=== PATIENT | female | born 1940 | race Caucasian/White ===

== ENCOUNTER 2018-07-19 12:31 | Inpatient (IN) | payer MEDICARE, BC ==
[2018-07-19] VITALS (16 sets, daily range): BP systolic 98–210; BP diastolic 44–112
[~2018-07-19] VITALS: Ht 162.6 cm; Wt 89.0 kg
[~2018-07-19 12:31] MED LIST: CALTRATE 602 PO; CYCLOBENZAPR10 MG OR; DIOVAN HC1 PO; FLEXERIL PO; LISINOP/HCTZ1 TA2 OR; LORTAB 5 OR; MELOXICAM15 MG OR; NAPROSYN500 MG PO; PROTONIX40 M1 IV; PROTONIX40 M2 PO; SKELAXIN800 MG OR
--- NOTE | 2018-07-19 12:46 | NUR ---
PT TO ROOM 13 VIA EMS. PT STATES THAT SHE HAS SUDDEN ONSET DIZZINESS -THAT BEGAN APPORXIMATE 2 HRS AGO. PT HAS BODY SHAKES, PT IS AOX4. PT STATES THAT SHE HAS BEEN DIAGNOISED WITH HTN BUT HAS NOT TAKEN ANY MEDICATION FOR A COUPLE OF MONTHS FOR IT. PT STATES HAVING SLIGHT SOB, DENIES ANY C/P, N/V OR WEAKNESS. PT DAUGHTER AT BEDSIDE.
[2018-07-19 13:12] LABS: HEMATOCRIT 47.5 % (37.0-47.0); HEMOGLOBIN 16.1 g/dl (12.0-16.0); IMMATURE GRANULOCYTES 0.4 % (0.0-5.0); MEAN CELL VOLUME 94.1 fL CALC (80.0-100.0); MEAN CORPUSCULAR HGB 31.9 pG CALC (26.0-32.0); MEAN CORPUSCULAR HGB CONC 33.9 g/L CALC (32.0-36.0); NEUT# 9.11 thou/uL (2.00-7.15); RED BLOOD COUNT 5.05 mill/uL (4.20-5.60); RED CELL DISTRI WIDTH 12.1 % (11.5-15.5)
[2018-07-19 13:20] LABS: ANION GAP 17 (6-22 (CALC)); BUN 12 mg/dL (8-23); BUN/CREATININE RATIO 13 (12-20 (CALC)); CARBON DIOXIDE 21 mmol/l (22-30); CHLORIDE 106 mmol/l (95-108); CREATININE 0.9 mg/dL (0.5-1.0); GFR 60 ML/MIN (>=60 (CALC)); GFR FOR AFR.AMER. > 60 ML/MIN (>=60 (CALC)); POTASSIUM 3.6 mmol/l (3.5-5.1); SODIUM 140 mmol/l (137-146)
--- NOTE | 2018-07-19 13:27 | NUR ---
SHAKING HAS SUBSIDED, PT APPEARS LESS ANXIOUS. DAUGHTER AT BEDSIDE.
--- NOTE | 2018-07-19 13:48 | NUR ---
SBAR PRINTED TO FLOOR
--- NOTE | 2018-07-19 13:58 | NUR ---
JESUSITA HUNG PER ORDER- BP AT 168/82. CARDALDA WILL BE HELD AT THIS TIME. MD NOTIFIED. PT STATES NO HEADACHE AT THIS TIME.
--- NOTE | 2018-07-19 14:04 | NUR ---
REPORT CALLED TO ICU- SAAD JANE ACCEPTED PT
--- NOTE | 2018-07-19 14:05 | NUR ---
REPORT RECVD FROM LUCINDA ROQUE IN THE ER.
--- NOTE | 2018-07-19 14:16 | NUR ---
NATALY, CASE MANAGEMENT SPEAKING TO ER ABOUT ADMISSION.
--- NOTE | 2018-07-19 14:18 | NUR ---
PT ARRIVED TO ICU 4 BY STRETCHER WITH TELE. PT ABLE TO TRANSFER SELF TO NEW BED.
--- NOTE | 2018-07-19 14:23 | NUR ---
Admission Note Report Given to: SAAD JANE Transported by: Wheelchair X Stretcher Transported with: X Nurse Transporter X Patent IV O2 X Ground Support Equipment Fitter TRANSPORTED TO ICU 4 WITHOUT INCIDENT
--- NOTE | 2018-07-19 14:48 | NUR ---
DR HAWKINS @BEDSIDE WITH PT/DAUGHTER.
--- NOTE | 2018-07-19 15:00 | NUR ---
PT C/O 5/10 ACHY HEADACHE & BLURRED VISION x1 DAY. C/O AIRPORT REFUELING HANDLER COUGH x1 WEEK. PT IS SMOKER. HX OF HTN. STATES SHE STOPPED TAKING HOME MEDS LAST YEAR AFTER HER . STRONG RADIAL PULSES, WEAK PEDAL PULSES. NO EDEMA. +3 CAP REFILL. MOELLER. A&Ox4. EYES PERRLA @3. ABD OBESE, SOFT/NONTENDER. N/V/D. "NORMAL" BM YESTERDAY. CLEAR SPEECH. REQUIRES MINIMAL ASSISTANCE TO BSC DUE TO CORDS. BREATHING IS EVEN/UNLABORED. LUNG SOUNDS CLEAR. PT IS MILD ANXIETY. FREQUENTLY UP TO BSC. OFFERED THE PUREWICK BUT PT DECLINED. DAUGHTER @BEDSIDE.
--- NOTE | 2018-07-19 15:30 | NUR ---
CARDENE DRIP TITRATED TO 2.5 FOR BP 156/74
--- NOTE | 2018-07-19 16:30 | NUR ---
CARDENE DRIP TITRATED DOWN TO 1.0 FOR BP 147/64.
--- NOTE | 2018-07-19 16:45 | NUR ---
PT SITTING UP IN BED, TABLE OVER LAP, PLAYING SOLITARE WITH CARDS.
--- NOTE | 2018-07-19 17:05 | NUR ---
CARDENE STOPPED DUE TO BP OF 119/74.
--- NOTE | 2018-07-19 17:13 | NUR ---
PT UP TO BSC. PT IS A&Ox4 BUT GETS CONFUSED. EXAMPLE: REPEATEDLY TOLD TO THROW AWAY TOILET PAPER BEHIND HAT BUT PT ALWAYS STATES "NO ONE TOLD HER".
--- NOTE | 2018-07-19 17:34 | NUR ---
PT SITTING UP IN BED, EATING DINNER. DENIES HEADACHE. DENIES BLURRY VISION.
--- NOTE | 2018-07-19 18:52 | NUR ---
BED ALARM SET. PT LAYING IN BED, WATCHING TV. OCCASSIONAL PRESCHOOL ASSISTANT DIRECTOR COUGH.
--- NOTE | 2018-07-19 18:55 | NUR ---
REPORT FROM Henrietta ERWIN RN. ASSUMED PT. CARE.
--- NOTE | 2018-07-19 19:35 | NUR ---
PT. FOUND AWAKE, ALERT, ORIENTED X 3. DENIES COMPLAINTS OF PAIN OTHER THAN 5/10 HEADACHE AT THIS TIME. WILL NOTIFY PHYSICIAN PT. HAS ALREADY HAD TYLENOL. MAE. MILLER. NO NEURO DEFICITS NOTED. FOUND SINUS RHYTHM IN THE 60-70'S. RESPS EVEN AND UNLABORED. LUNGS CTA. BOWEL SOUNDS PRESENT IN ALL QUADS. SKIN WARM AND DDRY. AFEBRILE. NO ABD PAIN. CALL LIGHT PLACED WITHIN REACH. IV FLUIDS INFUSING AT 20 CC/HR TO KVO. POSITIVE PULSES THROUGHOUT. BP STABLE. WILL MONITOR NEEDED.
--- NOTE | 2018-07-19 20:25 | NUR ---
PT. PROVIDED WITH COFFEE PER HER REQUEST. PT. HAS BEEN MEDICATED ORDERED. DENIES OTHER COMPLAINTS AT THIS TIME. WATCHING TELEVISION IN NO DISTRESS.
--- NOTE | 2018-07-19 21:15 | NUR ---
PT. MEDICATED WITH HS BP MEDS. PT. STATES HER PAIN IS NEARLY GONE AT THIS TIME. CONTINUES TO WATCH TELEVISION IN NO DISTRESS. VSS. WILL CONTINUE TO MONITOR.
--- NOTE | 2018-07-19 22:55 | NUR ---
PT. RESTING IN BED WITH EYES CLOSED. BP/HR REMAINS STABLE. IV FLUIDS CONTINUE TO RUN AT KVO. PT. C/O RT. ANKLE/FOOT PAIN. ARIEL HOSE VERY TIGHT AND BUNCHED UP AT HER ANKLE. REMOVED PER HER REQUEST. CALL LIGHT REMAINS WITHIN REACH. PT. STATES ANKLE/FOOT DISCOMFORT SIGNIFICANTLY IMPROVED AT THIS TIME.
[2018-07-20] VITALS (12 sets, daily range): BP systolic 96–127; BP diastolic 39–79
--- NOTE | 2018-07-20 00:23 | NUR ---
PT. RESTING IN BED WITH EYES CLOSED. EVEN AND UNLABORED RESPIRATIONS. VSS. CALL LIGHT REMAINS WITHIN REACH. WILL CONTINUE TO MONITOR.
--- NOTE | 2018-07-20 03:08 | NUR ---
PT. AWAKE, ALERT, ORIENTED. STABLE. RESPS REMAIN EVEN AND UNLABORED. ASSISTED TO BSC. AMBULATORY WITH STEADY GAIT. UPDATED ON CURRENT CONDITION AND PLAN FOR THE REST OF THE EARLY AM. DENIES COMPLAINTS OR NEEDS AT THIS TIME. STATES HEADACHE IS 1/10 AT THIS TIME.
--- NOTE | 2018-07-20 04:03 | NUR ---
PT. RESTING IN BED WITH EYES CLOSED. REMAINS STABLE, SINUS/SINUS REGINALDO ON THE MONITOR. RESPS REMAIN EVEN AND UNLABORED. DENIES COMPLAINTS OR NEEDS AT THIS TIME. CALL LIGHT REMAINS WITHIN REACH. WILL CONTINUE TO MONITOR.
--- NOTE | 2018-07-20 05:05 | NUR ---
PT. REMAINS EASILY AROUSABLE TO LIGHT VERBAL STIMULI. MOELLER. DENIES COMPLAINTS OF PAIN OR NEED. RESPS REMAIN EVEN AND UNLABORED. NO DISTRESS. VSS.
[2018-07-20 05:33] LABS: HEMATOCRIT 42.1 % (37.0-47.0); IMMATURE GRANULOCYTES 0.3 % (0.0-5.0); MEAN CELL VOLUME 96.8 fL CALC (80.0-100.0); MEAN CORPUSCULAR HGB 31.7 pG CALC (26.0-32.0); MEAN CORPUSCULAR HGB CONC 32.8 g/L CALC (32.0-36.0); NEUT# 3.92 thou/uL (2.00-7.15); RED BLOOD COUNT 4.35 mill/uL (4.20-5.60); RED CELL DISTRI WIDTH 12.2 % (11.5-15.5)
[2018-07-20 05:50] LABS: BILIRUBIN, TOTAL 0.6 mg/dL (0.0-1.4); CREATININE 1.2 mg/dL (0.5-1.0); MAGNESIUM 1.9 mg/dL (1.6-2.3); POTASSIUM 4.1 mmol/l (3.5-5.1)
[2018-07-20 05:51] LABS: ALBUMIN 2.9 g/dL (3.2-5.0); TOTAL PROTEIN 5.4 g/dL (6.3-8.2)
[2018-07-20 05:52] LABS: HEMOGLOBIN 13.8 g/dl (12.0-16.0)
[2018-07-20 06:28] LABS: URINE BILIRUBIN - DIPSTICK NEGATIVE (NEGATIVE); URINE BLOOD DIPSTICK TRACE-INTACT (NEGATIVE); URINE CLARITY CLEAR; URINE COLOR YELLOW; URINE GLUCOSE - DIPSTICK NEGATIVE (NEGATIVE); URINE KETONE NEGATIVE (NEGATIVE); URINE LEUK ESTERASE NEGATIVE (Negative); URINE NITRITE - DIPSTICK NEGATIVE (Negative); URINE PROTEIN - DIPSTICK NEGATIVE (NEG-TRACE); URINE UROBILINOGEN - DIPSTICK 0.2 E.U./dL (0.2)
--- NOTE | 2018-07-20 06:58 | NUR ---
REPORT RECVD FROM LUCINDA SAHU AT START OF SHIFT.
--- NOTE | 2018-07-20 07:12 | NUR ---
PT SLEEPING IN BED. NO S/S OF DISTRESS.
--- NOTE | 2018-07-20 07:46 | NUR ---
PT SITTING UP IN BED, EATING BREAKFAST.
--- NOTE | 2018-07-20 07:53 | NUR ---
DAUGHTER CALLED FOR UPDATE ON MOM. SHE WILL BE HERE AROUND 1000 TODAY
--- NOTE | 2018-07-20 08:11 | NUR ---
PT ATE 100% OF BREAKFAST. WAS ASSISTED TO BSC. THEN UNHOOKED SO SHE COULD GET HERSELF CLEANED UP & BRUSH HER TEETH.
--- NOTE | 2018-07-20 08:25 | NUR ---
PTS COUGH IS MORE FREQUENT THIS AM. EMBOSSING TOOLSETTER. BREATHING EVEN/UNLABORED. LUNGS CTA. PULSES STRONG. PT REFUSES ARIEL HOSE. ABD SOFT/NONTENDER. DENIES N/V/D. DENIES ABNORMALITY. PT A&Ox3 BUT CONFUSED, EASILY REDIRECTED. MOELLER. EYES PERRLA. STATES HEADACHE IS 1/10.
--- NOTE | 2018-07-20 09:00 | NUR ---
MORNING MEDS HELD UNTIL MD REVIEWS BP MEDICATIONS.
--- NOTE | 2018-07-20 09:33 | NUR ---
DR HAWKINS @BEDSIDE, ASSESSING PT & DISCUSSING POC AND TEST RESULTS. MD AWARE PT REFUSED ARIEL DARVIN AND PT UP TO BSC FREQUENTLY, WILL PLACE ORDER FOR LOVENOX. STOPPED COREG DUE TO LOW BP OVERNIGHT. ORDERED ECHO. BLOOD BANK SPECIALIST WILL BE IN HOUSE TODAY AFTER 1600. STARTED ABX TREATMENT FOR POSSIBLE COPD/CHF
--- NOTE | 2018-07-20 09:45 | NUR ---
ANTERIOR & POSTERIOR EKG COMPLETED.
--- NOTE | 2018-07-20 10:29 | NUR ---
DAUGHTER @BEDSIDE. MEDICATED PT PER MDS ORDERS. MEDICATED FOR ANXIETY, PT WOULD LIKE TO GET MORE SLEEP WHILE HERE. UPDATED PT & DAUGHTER ON POC AND POSSIBLE DC TOMORROW AFTER BP STABLIZES- NOT TO HIGH, NOT TO LOW.
--- NOTE | 2018-07-20 11:05 | NUR ---
PT ASSISTED UP TO BSC, WITH MINIMAL HELP. STARTED 2ND ABX. DAUGHTER WENT BACK TO WORK, WILL RETURN AROUND 1700 TONIGHT. PT SITTING UP IN BED, PLAYING Neur[employer]on.
--- NOTE | 2018-07-20 11:27 | NUR ---
EPHRAIM, CASE MANAGEMENT, AT BEDSIDE.
--- NOTE | 2018-07-20 11:49 | NUR ---
PT C/O LAC ITCHING. PT CONSTANTLY SCRATCHING AREA. LAC IV DC'D. NEW IV ESTABLISHED IN LEFT HAND. PT NOW SITTING UP IN BED, EATING LUNCH.
--- NOTE | 2018-07-20 12:30 | NUR ---
PT SITTING UP IN BED, EATING LUNCH. NO S/S OF DISTRES.
--- NOTE | 2018-07-20 14:22 | NUR ---
PT UP TO BSC. OCCASIONAL PARKING ENFORCER COUGH. PT MEDICATED FOR GENERALIZED PAIN.
--- NOTE | 2018-07-20 15:23 | NUR ---
PT SLEEPING IN BED. NO S/S OF DISTRESS. CALLBELL W/IN REACH. WILL CONTINUE TO MONITOR.
--- NOTE | 2018-07-20 17:10 | NUR ---
ASSISTED PT UP TO BSC W/OUT INCIDENT. PT DENIES PAIN. DENIES VISION CHANGES.
--- NOTE | 2018-07-20 17:18 | NUR ---
PT SITTING UP IN BED, EATING DINNER.
--- NOTE | 2018-07-20 17:54 | NUR ---
DAUGHTER @BEDSIDE WITH PT. DAUGHTER ASKING IF WE HAVE NOTICED THE FORGETFULNESS AND CONFUSION, WONDERING IF IT HAS TO DO WITH HER BLOOD PRESSURE. WHEN I DENIED THAT WOULD BE A S/E, SHE VOWED TO BE MORE INVOLVED IN MOMS DAY. STATE PT LIVES WITH HER NEICE & NEPHEW.
--- NOTE | 2018-07-20 19:00 | NUR ---
PT SITTING UP IN BED AWAKE VISITING WITH DAUGHTER. PT IS ALERT AND ORIENTED X3. SHIFT ASSESSMENT COMPLETED AT THIS TIME. IV PATENT X1. PLAN OF CARE REVIEWED WITH PATIENT AND DAUGHTER. BOTH VERBALIZED UNDERSTANDING. CALL LIGHT IN REACH. WILL CONTINUE TO MONITOR.
--- NOTE | 2018-07-20 20:39 | NUR ---
CORE FILER UNABLE TO PERFORM ECHO AT BEDSIDE. SHE STATES THAT SHE HAS NOT BEEN TRAINED ON THE PORTABLE MACHINE.
--- NOTE | 2018-07-20 21:00 | NUR ---
MEDICATED WITH HS MEDS. ASSISTED PT TO BSC TO VOID. PT ASSISTED BACK TO BED. PT TOLERATED TRANSFER WELL. COFFEE PROVIDED AT PT REQUEST. CALL LIGHT IN REACH. WILL CONTINUE OT BERNADETTE
--- NOTE | 2018-07-20 21:58 | NUR ---
PT RESTING IN BED WITH EYES CLOSED. RESP ARE EVEN AND UNLABORED. NO DISTRESS NOTED. CALL LIGHT IN REACH. WILL CONTINUE TO MONITOR.
--- NOTE | 2018-07-20 23:56 | NUR ---
pt resting in bed with eyes closed. resp are even and unlabored. no distress noted. call light in reach. will continue to monitor.
[2018-07-21] VITALS (9 sets, daily range): BP systolic 101–140; BP diastolic 41–86
--- NOTE | 2018-07-21 02:12 | NUR ---
pt resting in bed with eyes closed. resp are even and unlabored. no distress noted. call light in reach. will continue to monitor.
--- NOTE | 2018-07-21 04:30 | NUR ---
FEDERAL AIR MARSHAL IN ROOM TO DRAW AM LABS
--- NOTE | 2018-07-21 05:00 | NUR ---
PT ASSISTED TO BSC TO VOID. PT THEN ASSISTED TO SINK TO WASH UP AND BRUSH TEETH. LINENS CHANGED AT THIS TIME. PT ASSISTED TO RECLINER TO SIT UP FOR A BIT. CALL LIGHT IN REACH. WILL CONTINUE TO MONTIOR.
[2018-07-21 05:21] LABS: HEMATOCRIT 41.9 % (37.0-47.0); IMMATURE GRANULOCYTES 0.4 % (0.0-5.0); MEAN CELL VOLUME 97.2 fL CALC (80.0-100.0); MEAN CORPUSCULAR HGB 32.5 pG CALC (26.0-32.0); MEAN CORPUSCULAR HGB CONC 33.4 g/L CALC (32.0-36.0); NEUT# 3.94 thou/uL (2.00-7.15); RED BLOOD COUNT 4.31 mill/uL (4.20-5.60); RED CELL DISTRI WIDTH 12.4 % (11.5-15.5)
[2018-07-21 05:29] LABS: ALBUMIN 2.9 g/dL (3.2-5.0); BILIRUBIN, TOTAL 0.2 mg/dL (0.0-1.4); CREATININE 1.2 mg/dL (0.5-1.0); POTASSIUM 4.2 mmol/l (3.5-5.1); TOTAL PROTEIN 5.4 g/dL (6.3-8.2)
--- NOTE | 2018-07-21 05:59 | NUR ---
PT REQUESTED TO GO BACK TO BED. ENCOURAGED PT TO SIT A BIT LONGER PT STILL REQUESTED TO GO BACK TO BED.. PT ASSISTED TO BED. COFFEE PROVIDED. FRESH WATER PROVIDED. CALL LIGHT IN REACH. WILL CONTINUE TO MONITOR
--- NOTE | 2018-07-21 06:59 | NUR ---
RECVD REPORT FROM LUCINDA EDUARDO AT START OF SHIFT.
--- NOTE | 2018-07-21 07:10 | NUR ---
PT SLEEPING IN BED. BREATHING IS EVEN/UNLABORED. NO S/S OF DISTRESS.
--- NOTE | 2018-07-21 07:35 | NUR ---
PT SITTING UP IN BED, EATING BREAKFAST.
--- NOTE | 2018-07-21 07:46 | NUR ---
DIETARY @BEDSIDE FOR FOOD PREFERENCES.
--- NOTE | 2018-07-21 07:50 | NUR ---
PT STATES SHE HAS A SLIGHT HEADACHE. DENIES OTHER PAIN. DENIES SOB. DENIES N/V/D. NO BM SINCE ADMITTED. BREATHING EVEN/UNLABORED, LUNG SOUNDS CLEAR. PULSES STRONG. NO EDEMA. MOELLER. NO NUERO ABNORMALITY. DENIES VISION CHANGES. INTERNET MARKETING CONSULTANT STRONG. PERRLA. SPEECH CLEAR. PT A&Ox3 BUT FORGETFUL.
--- NOTE | 2018-07-21 08:22 | NUR ---
PT PLAYING SOLITARE IN BED, WITH TABLE OVER LAP.
--- NOTE | 2018-07-21 08:46 | NUR ---
PT MEDICATED & ASSISTED UP TO BSC. DENIES OTHER NEEDS. PLAYING CARDS IN BED. DO NOT WANT TO GET UP TO RECLINER. CALLBELL W/IN REACH.
--- NOTE | 2018-07-21 10:07 | NUR ---
ASSISTED PT TO BSC & BACK. PT GIVEN APPLE JUICE FOR HICCUPS.
--- NOTE | 2018-07-21 10:26 | NUR ---
DR HAWKINS CALLED TO CHECK ON PTS STATUS & ORDERED NEW RADIOLOGY.
--- NOTE | 2018-07-21 10:36 | NUR ---
DAUGHTER @BEDSIDE WITH PT.
--- NOTE | 2018-07-21 10:55 | NUR ---
DAUGHTER WENT BACK TO WORK, WILL BE BACK AROUND 5 TONIGHT. SHE LEFT HER PHONE #S ON THE [employer] BOARD.
--- NOTE | 2018-07-21 11:40 | NUR ---
PT SITTING UP IN BED, EATING LUNCH. C/O PAIN FROM IV. SLOWED AZITHROMYCN TO 150ML/HR.
--- NOTE | 2018-07-21 12:00 | NUR ---
DIETARY @BEDSIDE WITH PT. PT VERY COMPLIMENTARY TOWARDS MEALS.
--- NOTE | 2018-07-21 12:44 | NUR ---
PT TRANSPORTED TO RADIOLOGY FOR 2V CHEST XR & KIDNEY U/S BY WC, BY AUXILLARY. PT USED BSC PRIOR TO LEAVING.
--- NOTE | 2018-07-21 14:02 | NUR ---
PT RETURNED FROM RADIOLOGY. USED BSC PRIOR TO CLIMBING IN BED. PT ON MONITOR.
--- NOTE | 2018-07-21 14:09 | NUR ---
DR HAWKINS @BEDSIDE ASSESSING PT.
[2018-07-21] MEDS ORDERED: PREDNISONE10 MG PO (14:30)
[2018-07-21] MEDS ORDERED: DOXYCYCL HYC100 MG PO (14:30)
[2018-07-21] MEDS ORDERED: DUONEB IN (14:31)
[2018-07-21] MEDS ORDERED: COZAAR25 MG PO (14:35)
[2018-07-21] MEDS ORDERED: PROTONIX40 M2 PO (14:35)
--- NOTE | 2018-07-21 14:45 | NUR ---
PT PREPARED FOR DC. IV DISCONTINUED, TIP INTACT, DRESSING APPLIED. PT DRESSED HERSELF IN CLOTHING SHE ARRIVED IN. PT WALKING AROUND THE ROOM WITH STEADY GAIT GATHERING HER BELONGING AND APPLYING MAKE-UP/BRUSHING HAIR. DAUGHTER CALLED TO NOTIFY OF DC. SHE WILL BE HERE AFTER SCHOOL GETS OUT AROUND 1500.
--- NOTE | 2018-07-21 14:54 | NUR ---
DR HAWKINS CALLED, DC ON HOLD UNTIL HE SPEAKS WITH CASE MANAGMENT ABOUT HOME HEALTH.
--- NOTE | 2018-07-21 15:20 | NUR ---
SAAD, HOME HEALTH, @BEDSIDE WITH PT/DAUGHTER.
--- NOTE | 2018-07-21 15:41 | NUR ---
PT/DAUGHTER EDUCATED ON NEW MEDICATIONS & FOLLOW UP CARE. QUESTIONS ANSWERED. PROVIDED CARDS FOR DR CHAVARRIA & DR SCHULTZ. AUX PROVIDED WC DOWN TO CARE. PT LEFT ICU IN STABLE CONDITION WITH DAUGTHER. DAUGHTER HUGGED ME ON THE WAY OUT AND TOLD ME I WAS "AMAZING"!
== END 2018-07-21 15:41 | disposition home health service (06) | DRG 305 ==
LOC: ED 12:31 → ED-I 13:36 → ED 13:49 → ICU 13:50
PROVIDERS: Family Medicine; ADMIT Internal Medicine Nephrology; ATTEND Internal Medicine Nephrology
DX: I16.1 Hypertensive emergency (principal); J44.1 Chronic obstructive pulmonary disease with (acute) exacerbation; J44.0 Chronic obstructive pulmonary disease with (acute) lower respiratory infection; I12.9 Hypertensive chronic kidney disease with stage 1 through stage 4 chronic kidney disease, or unspecified chronic kidney disease; N18.3 Chronic kidney disease, stage 3 (moderate); T46.5X6A Underdosing of other antihypertensive drugs, initial encounter; E78.5 Hyperlipidemia, unspecified; F32.9 Major depressive disorder, single episode, unspecified; F41.9 Anxiety disorder, unspecified; H91.90 Unspecified hearing loss, unspecified ear; H35.033 Hypertensive retinopathy, bilateral; E66.9 Obesity, unspecified; F41.1 Generalized anxiety disorder; J20.9 Acute bronchitis, unspecified; F17.200 Nicotine dependence, unspecified, uncomplicated; Z91.128 Patient's intentional underdosing of medication regimen for other reason; Z68.33 Body mass index [BMI] 33.0-33.9, adult; Z63.4 Disappearance and death of family member; Z23 Encounter for immunization

== ENCOUNTER → 2018-11-09 | Outpatient (REF) | payer MEDICARE, BC ==
[~2018-11-09] MED LIST changes: +COZAAR25 MG PO; +DOXYCYCL HYC100 MG PO; +DUONEB IN; +PREDNISONE10 MG PO
== END | disposition home or self-care (01) ==
LOC: MAMMO 13:32
PROVIDERS: ATTEND Internal Medicine
DX: Z12.31 Encounter for screening mammogram for malignant neoplasm of breast (principal); N95.1 Menopausal and female climacteric states

== ENCOUNTER 2019-03-26 09:30 | Emergency (ER) | payer MEDICARE, BC ==
[~2019-03-26] VITALS: Ht 162.6 cm; Wt 90.0 kg
[2019-03-26] MEDS ORDERED: LOSARTAN POT50 MG PO (10:15)
[2019-03-26] MEDS ORDERED: ESCITALOPRAM OX10 MG PO (10:15)
[2019-03-26] MEDS ORDERED: NAPROSYN500 MG PO (11:00)
[2019-03-26 11:10] VITALS: BP 139/74
== END 2019-03-26 11:10 | disposition home or self-care (01) ==
LOC: ED 09:30
DX: M19.071 Primary osteoarthritis, right ankle and foot (principal); M77.9 Enthesopathy, unspecified; I10 Essential (primary) hypertension; F17.200 Nicotine dependence, unspecified, uncomplicated

== ENCOUNTER 2019-07-09 07:55 | Emergency (ER) | payer MEDICARE, BC ==
[~2019-07-09] VITALS: Ht 162.6 cm; Wt 86.0 kg
[~2019-07-09 07:55] MED LIST changes: +ESCITALOPRAM OX10 MG PO; +LOSARTAN POT50 MG PO
[2019-07-09] MEDS ORDERED: HYDROCO/APAP1 TA9 PO (12:31)
[2019-07-09 13:25] VITALS: BP 178/75
== END 2019-07-09 13:25 | disposition home or self-care (01) ==
LOC: ED 07:55
PROC: 0RSJXZZ Reposition Right Shoulder Joint, External Approach (ICD-10-PCS; principal; 2019-07-09)
DX: S43.011A Anterior subluxation of right humerus, initial encounter (principal); I10 Essential (primary) hypertension; F17.210 Nicotine dependence, cigarettes, uncomplicated; X58.XXXA Exposure to other specified factors, initial encounter

== ENCOUNTER 2019-07-17 18:46 | Emergency (ER) | payer MEDICARE, BC ==
[~2019-07-17] VITALS: Ht 61 cm; Wt 91.3 kg
[~2019-07-17 18:46] MED LIST changes: +HYDROCO/APAP1 TA9 PO
[2019-07-17 19:58] LABS: HEMATOCRIT 39.9 % (37.0-47.0); HEMOGLOBIN 13.6 g/dl (12.0-16.0); IMMATURE GRANULOCYTES 0.3 % (0.0-5.0); MEAN CELL VOLUME 93.2 fL CALC (80.0-100.0); MEAN CORPUSCULAR HGB 31.8 pG CALC (26.0-32.0); MEAN CORPUSCULAR HGB CONC 34.1 g/L CALC (32.0-36.0); NEUT# 9.08 thou/uL (2.00-7.15); RED BLOOD COUNT 4.28 mill/uL (4.20-5.60); RED CELL DISTRI WIDTH 12.1 % (11.5-15.5)
[2019-07-17 20:01] LABS: ALBUMIN 3.3 g/dL (3.2-5.0); ALKALINE PHOSPHATASE 99 u/l (38-126); BUN 18 mg/dL (8-23); BUN/CREATININE RATIO 17 (12-20 (CALC)); CARBON DIOXIDE 26 mmol/l (22-30); CHLORIDE 104 mmol/l (95-108); GFR 53 ML/MIN (>=60 (CALC)); GFR FOR AFR.AMER. > 60 ML/MIN (>=60 (CALC)); SGOT/AST 23 u/l (9-36); SODIUM 138 mmol/l (137-146); TOTAL PROTEIN 6.4 g/dL (6.3-8.2)
[2019-07-17 20:10] LABS: ANION GAP 11 (6-22 (CALC)); BILIRUBIN, TOTAL 0.5 mg/dL (0.0-1.4)
[2019-07-17 21:53] LABS: URINE BILIRUBIN - DIPSTICK NEGATIVE (NEGATIVE); URINE BLOOD DIPSTICK SMALL (NEGATIVE); URINE COLOR YELLOW; URINE GLUCOSE - DIPSTICK NEGATIVE (NEGATIVE); URINE KETONE NEGATIVE (NEGATIVE); URINE LEUK ESTERASE NEGATIVE (NEGATIVE); URINE NITRITE - DIPSTICK NEGATIVE (Negative); URINE PH 5.5 (4.5-8.0); URINE PROTEIN - DIPSTICK 30 mg/dL (NEG-TRACE); URINE SPECIFIC GRAVITY >=1.030; URINE UROBILINOGEN - DIPSTICK 0.2 E.U./dL (0.2)
[2019-07-17 21:58] LABS: URINE SQUAMOUS EPITHELIAL CELL FEW EPI/hpf (0-FEW)
[2019-07-17] MEDS ORDERED: ZITHROMAX250 MG PO (22:22)
[2019-07-17] MEDS ORDERED: CODEINE/GUAIFEN1 SOL PO (22:22)
[2019-07-17] MEDS ORDERED: PROAIR HFA108 MCG/AC IN (22:22)
[2019-07-17 23:20] VITALS: BP 163/70
== END 2019-07-17 23:20 | disposition home or self-care (01) ==
LOC: ED 18:46
PROVIDERS: Emergency Medicine
DX: J40 Bronchitis, not specified as acute or chronic (principal); I10 Essential (primary) hypertension; F17.210 Nicotine dependence, cigarettes, uncomplicated; R06.02 Shortness of breath

== ENCOUNTER 2019-10-12 | Emergency (ER) | payer MEDICARE, BC ==
[~2019-10-12] MED LIST changes: +CODEINE/GUAIFEN1 SOL PO; +PROAIR HFA108 MCG/AC IN; +ZITHROMAX250 MG PO
[2019-10-12 08:32] LABS: HEMATOCRIT 40.4 % (37.0-47.0); HEMOGLOBIN 13.3 g/dl (12.0-16.0); IMMATURE GRANULOCYTES 0.6 % (0.0-5.0); MEAN CELL VOLUME 95.1 fL CALC (80.0-100.0); MEAN CORPUSCULAR HGB 31.3 pG CALC (26.0-32.0); MEAN CORPUSCULAR HGB CONC 32.9 g/L CALC (32.0-36.0); NEUT# 12.19 thou/uL (2.00-7.15); RED BLOOD COUNT 4.25 mill/uL (4.20-5.60); RED CELL DISTRI WIDTH 12.3 % (11.5-15.5)
[2019-10-12 08:35] LABS: ALBUMIN 3.6 g/dL (3.2-5.0); ALKALINE PHOSPHATASE 88 u/l (38-126); ANION GAP 14 (6-22 (CALC)); BILIRUBIN, TOTAL 0.7 mg/dL (0.0-1.4); BUN 18 mg/dL (8-23); BUN/CREATININE RATIO 20 (12-20 (CALC)); CARBON DIOXIDE 25 mmol/l (22-30); CHLORIDE 104 mmol/l (95-108); CREATININE 0.9 mg/dL (0.5-1.0); ETHYL ALCOHOL 0 mg/dl (0-30); GFR 60 ML/MIN (>=60 (CALC)); GFR FOR AFR.AMER. > 60 ML/MIN (>=60 (CALC)); LIPASE 283 u/l (23-300); SGOT/AST 31 u/l (9-36); SODIUM 139 mmol/l (137-146); TOTAL PROTEIN 6.9 g/dL (6.3-8.2)
[2019-10-12 08:36] LABS: POTASSIUM 3.9 mmol/l (3.5-5.1)
[2019-10-12 08:39] LABS: ACT PARTIAL THROMBO TIME 21.9 SECONDS (20.0-32.5); INTERNATIONAL NORMALIZED RATIO 1.1 RATIO (0.7-1.3); PROTHROMBIN TIME 11.2 SECONDS (9.0-12.5)
== END 2019-10-12 15:05 ==
PROC: 0HQ1XZZ Repair Face Skin, External Approach (ICD-10-PCS; principal; 2019-10-12)
DX: S32.040A Wedge compression fracture of fourth lumbar vertebra, initial encounter for closed fracture (principal); S01.111A Laceration without foreign body of right eyelid and periocular area, initial encounter; S80.02XA Contusion of left knee, initial encounter; S80.01XA Contusion of right knee, initial encounter; S42.401A Unspecified fracture of lower end of right humerus, initial encounter for closed fracture; M97.31XA Periprosthetic fracture around internal prosthetic right shoulder joint, initial encounter; M79.642 Pain in left hand; M79.641 Pain in right hand; I10 Essential (primary) hypertension; F17.210 Nicotine dependence, cigarettes, uncomplicated; W01.190A Fall on same level from slipping, tripping and stumbling with subsequent striking against furniture, initial encounter; Y92.009 Unspecified place in unspecified non-institutional (private) residence as the place of occurrence of the external cause
CPT/HCPCS: J2060

== ENCOUNTER 2020-08-02 11:54 | Emergency (ER) | payer MEDICARE, BC ==
[~2020-08-02] VITALS: Ht 162.6 cm; Wt 99.0 kg
[2020-08-02 12:15] VITALS: BP 186/86
== END 2020-08-02 13:45 | disposition home or self-care (01) ==
LOC: ED 11:54
DX: M25.512 Pain in left shoulder (principal); I10 Essential (primary) hypertension; J45.909 Unspecified asthma, uncomplicated; H91.90 Unspecified hearing loss, unspecified ear; F17.210 Nicotine dependence, cigarettes, uncomplicated

== ENCOUNTER 2021-09-03 18:47 | Emergency (ER) | payer MEDICARE, BC ==
[~2021-09-03] VITALS: Ht 162.6 cm; Wt 100.0 kg
[2021-09-03 20:27] VITALS: BP 200/87
== END 2021-09-03 20:28 | disposition home or self-care (01) ==
LOC: ED 18:47
DX: S01.81XA Laceration without foreign body of other part of head, initial encounter (principal); S80.02XA Contusion of left knee, initial encounter; S80.212A Abrasion, left knee, initial encounter; S51.812A Laceration without foreign body of left forearm, initial encounter; S51.811A Laceration without foreign body of right forearm, initial encounter; I10 Essential (primary) hypertension; J45.909 Unspecified asthma, uncomplicated; H91.90 Unspecified hearing loss, unspecified ear; F17.210 Nicotine dependence, cigarettes, uncomplicated; W18.39XA Other fall on same level, initial encounter; Y92.007 Garden or yard of unspecified non-institutional (private) residence as the place of occurrence of the external cause